=== PATIENT | male | born 1965 | race Caucasian/White ===

== ENCOUNTER 2018-01-19 08:29 | Day surgery (SDC) | payer BC ==
[~2018-01-19] VITALS: Ht 172.7 cm; Wt 77.1 kg
[~2018-01-19 08:29] MED LIST: ADVAIR DISK1 IN; AMLODIPINE10 MG PO; AMOXICILLIN500 MG PO; ASPIRIN 81 LOW81 MG PO; MULTIVITAMI9 PO
[2018-01-19 11:15] VITALS: BP 132/79
== END 2018-01-19 11:45 | disposition home or self-care (01) | DRG 951 ==
LOC: ENDO 08:29
PROVIDERS: ATTEND Surgery
PROC: 0DJD8ZZ Inspection of Lower Intestinal Tract, Via Natural or Artificial Opening Endoscopic (ICD-10-PCS; principal; 2018-01-19)
DX: Z12.11 Encounter for screening for malignant neoplasm of colon (principal); Q43.8 Other specified congenital malformations of intestine; I10 Essential (primary) hypertension

== ENCOUNTER 2023-09-06 10:29 | Day surgery (SDC) | payer BC ==
[~2023-09-06] VITALS: Ht 172.7 cm; Wt 77.1 kg
[~2023-09-06 10:29] MED LIST changes: +ALPRAZOLAM0.25 MG PO; +LEVOTHYROXIN50 MCG PO
[2023-09-06] MEDS ORDERED: LACTATED RINGER'S 1,000 ML IV ONE (10:32)
[2023-09-06] MEDS ORDERED: FAMOTIDINE 10MG/ML 2ML SDV IV ONE (10:32)
[2023-09-06 13:02] VITALS: BP 133/88
[2023-09-06] MEDS ORDERED: GLYCOPYRROLATE 0.2 MG/ML IV ONE (13:34)
[2023-09-06] MEDS ORDERED: LIDOCAINE HCL 2% 2ML SDV IV ONE (13:34)
[2023-09-06] MEDS ORDERED: PROPOFOL 200 MG/20 ML VIAL IV ONE (13:34)
== END 2023-09-06 12:44 | disposition home or self-care (01) | DRG 951 ==
LOC: ENDO 10:29
PROVIDERS: ATTEND Internal Medicine Gastroenterology
PROC: 0DJD8ZZ Inspection of Lower Intestinal Tract, Via Natural or Artificial Opening Endoscopic (ICD-10-PCS; principal; 2023-09-06)
DX: Z12.11 Encounter for screening for malignant neoplasm of colon (principal); K64.8 Other hemorrhoids; I10 Essential (primary) hypertension; K21.9 Gastro-esophageal reflux disease without esophagitis; E03.9 Hypothyroidism, unspecified; J45.909 Unspecified asthma, uncomplicated; Z80.0 Family history of malignant neoplasm of digestive organs